=== PATIENT | male | born 1955 | race American Indian/Alaskan Native ===

== ENCOUNTER 2020-09-12 19:22 | Emergency (ER) | payer SELFPAY ==
[~2020-09-12 19:22] MED LIST: EPINEPHrine 1 MG/10 ML SYRINGE ONE; SODIUM BICARB 8.4% 50 MEQ/50 ML SYRINGE IV ONE
--- NOTE | 2020-09-12 19:32 | Emergency Department Report ---
HPI - General Time Seen by Provider: 09/12/20 19:29 - HPI HPI: Room 41 The patient is a 64-year-old male present with a chief complaint of cardiac arrest. Per EMS the patient's last known well time was approximately 1 hour prior to arrival. The patient was found in a hospital bed unresponsive. Per EMS family initiated CPR and 911 was called. EMS arrived on scene at 18:40 to find the patient in asystole. The patient was intubated by EMS and ACLS protocols were continued. Per EMS they administered 4 rounds of epinephrine and the patient remained asystolic while in route. In the ED ACLS protocols were continued but there was no return of spontaneous circulation ED Past Medical Hx - Past Medical History Previous Medical History?: No Additional medical history: See nursing notes - Family History Family history: no significant - Social History Smoking Status: Unknown if ever smoked ED Review of Systems ROS: Stated complaint: CARDIAC ARREST Other details as noted in HPI Comment: Unobtainable due to pts medical conditions Physical Exam - Physical Exam Physical Exam: GENERAL: The patient is a thin cachectic male lying on stretcher being bagged via ET tube and receiving chest compressions HEENT: Normocephalic. Atraumatic. NECK: Supple. Trachea midline CHEST/LUNGS: No spontaneous respirations. Breath sounds equal bilaterally with bagging HEART/CARDIOVASCULAR: No heart sounds ABDOMEN: Abdomen is soft,. Patient appears emaciated SKIN: There is no rash. There is no edema. There is no diaphoresis. NEURO: GCS 3 T MUSCULOSKELETAL: There is no evidence of acute injury. ED Medical Decision Making - Differential Diagnosis Cardiac arrest Critical care attestation.: If time is entered above; I have spent that time in minutes in the direct care of this critically ill patient, excluding procedure time. ED Disposition Clinical Impression: Cardiac arrest Disposition: DC-20 Is pt being admited?: No Does the pt Need Aspirin: No Condition: Poor Time of Disposition: 19:32 (Patient )
== END 2020-09-13 01:30 ==
LOC: ED 19:22
DX: I46.9 Cardiac arrest, cause unspecified (principal)
CPT/HCPCS: 92950; 99285; J0171